=== PATIENT | male | born 1970 | race African-American/Black ===

== ENCOUNTER 2020-12-07 09:29 | Emergency (ER) | payer OTHER ==
[2020-12-07 10:11] VITALS: TEMP 98.1; BMI 21.1
[2020-12-07 11:55] LABS: BASO % 0.2 % (0-2.0); HEMOGLOBIN 15.3 GM/dL (11.7-16.9); LYMPH % 6.9 % (8-40); MCH 29.9 pg (25.7-33.7); MEAN CELL VOLUME 88.2 fl (80-96); MEAN PLT VOLUME 9.1 fl (7.5-11.1); MONO % 4.8 % (3.8-10.2); NEUT % 88.1 % (42.8-82.8); PLATELET COUNT 282 K/MM3 (134-434); RDW 12.7 % (11.9-15.9); WHITE BLOOD COUNT 11.3 K/mm3 (4.0-10.0)
[2020-12-07 12:01] LABS: EPI CELLS 2 /uL (0-25.1); HYALINE CASTS 1 /uL (0-3.1); PH,URINE 5.5 (5.0-8.0); URINE APPEARANCE CLEAR; URINE BACTERIA 42 /uL (0-1359); URINE BILIRUBIN NEGATIVE (NEGATIVE); URINE COLOR YELLOW; URINE GLUCOSE (UA) NEGATIVE (NEGATIVE); URINE KETONE NEGATIVE (NEGATIVE); URINE LEUK ESTERASE NEGATIVE (NEGATIVE); URINE NITRITE NEGATIVE (NEGATIVE); URINE PROTEIN NEGATIVE (NEGATIVE); URINE RBC 19 /uL (0-23.9); URINE UROBILINOGEN 0.2 mg/dL (0.2-1.0); URINE WBC 2 /uL (0-25.8)
[2020-12-07 12:10] LABS: ALBUMIN 4.6 g/dl (3.4-5.0)
[2020-12-07 12:11] LABS: BLOOD UREA NITROGEN 16.5 mg/dL (7-18)
[2020-12-07 12:15] LABS: BILIRUBIN,TOTAL 0.5 mg/dL (0.2-1)
[2020-12-07 13:20] VITALS: BP 134/87; PULSE 102
== END 2020-12-07 13:20 | disposition home or self-care (01) ==
LOC: JER 09:29
DX: R33.9 Retention of urine, unspecified (principal); N40.1 Benign prostatic hyperplasia with lower urinary tract symptoms; R10.9 Unspecified abdominal pain
CPT/HCPCS: 36415; 80053; 81003; 85025; 87086; 99284-25